=== PATIENT | female | born 1965 | race Caucasian/White ===

== ENCOUNTER 2021-02-18 11:06 | Day surgery (SDC) | payer BC ==
[2021-02-11 14:47] LABS: BASOPHILS % (AUTO) 0.4 % (0-1); EOSINOPHILS % (AUTO) 0 % (0-6); LYMPHOCYTES # (AUTO) 2.4 X10'3 (1.1-4.8); LYMPHOCYTES % (AUTO) 30.5 % (21-51); MEAN CORPUSCULAR HEMOGLOBIN 32.6 PG (27.0-31.0); MEAN CORPUSCULAR HGB CONC 34.2 g/dL (33.0-36.5); MEAN CORPUSCULAR VOLUME 95.1 FL (78-98); MONOCYTES # (AUTO) 0.7 X10'3 (0-0.9); MONOCYTES % (AUTO) 9.1 % (2-12); NEUTROPHILS # (AUTO) 4.7 X10'3 (1.8-7.7); PRE OP HEMATOCRIT 46.3 % (35.0-45.0); PRE OP HEMOGLOBIN 15.8 g/dL (12.0-16.0); PRE OP PLATELET COUNT 285 X10'3 (140-440); RED BLOOD COUNT 4.87 X10'6 (4.20-5.60); RED CELL DISTRIBUTION WIDTH 12.7 % (11.5-14.5)
[2021-02-11 15:00] LABS: PRE OP PROTIME 10.8 SECONDS (9.0-12.0)
[2021-02-11 15:02] LABS: ALBUMIN/GLOBULIN RATIO 1.2 (1.1-1.5); ALKALINE PHOSPHATASE 77 IU/L (46-116); BLOOD UREA NITROGEN 17 MG/DL (7-18); BUN/CREATININE RATIO 16.2 (6.6-38.0); CALCIUM 9.1 MG/DL (8.5-10.1); CHLORIDE 107 MMOL/L (99-107); CREATININE 1.05 MG/DL (0.40-0.90); PRE OP ALT 33 U/L (30-65); PRE OP ANION GAP 9 (8-16); PRE OP AST 18 U/L (10-37); PRE OP BILIRUB, TOTAL 0.4 MG/DL (0.0-1.0); PRE OP GLUCOSE 90 MG/DL (70-104); PRE OP POTASSIUM 4.2 MMOL/L (3.4-5.1); PRE OP SODIUM 144 MMOL/L (135-145); TOTAL CARBON DIOXIDE 28.2 MMOL/L (24-32); TOTAL PROTEIN 7.4 G/DL (6.4-8.2); eGFR 55 ML/MIN
[~2021-02-18] VITALS: Ht 170.2 cm; Wt 77.1 kg
[2021-02-18] VITALS (20 sets, daily range): BP systolic 133–200; BP diastolic 91–117
[~2021-02-18 11:06] MED LIST: HYDR12.55; LIDOcaine 1% W/epiNEPHrine 1:100,000 20ml vial ONE; LISI30TA4 PO; SILD100T70; SULF1TAB45 PO; cefTAZidime 1gm inj ONE; cocaine 4% topical solution 4ml bottle ONE; famotidine 20mg tablet PO ONE; mupirocin 2% ointment 22GM ONE; oxymetazoline 15 ML nasal spray NS ONE; ringers solution, lacted 1,000 ML IV SCH
[2021-02-18] MEDS: oxymetazoline 15 ML nasal spray NS SCH ×2 (12:00→12:07)
[2021-02-18] MEDS ORDERED: fentaNYL/PF 50MCG/1 ML 2ML syringe ONE ×2 (12:31→13:02)
[2021-02-18] MEDS ORDERED: midazolam 1 mg/ML 2ml injection ONE (12:31)
[2021-02-18] MEDS ORDERED: propofol inj 20 ML IV ONE (12:32)
[2021-02-18] MEDS ORDERED: LIDOcaine 2% (20mg/ml) 5ml vial ONE (12:32)
[2021-02-18] MEDS ORDERED: sevoflurane 250ml liquid IH ONE (12:39)
[2021-02-18] MEDS ORDERED: labetalol 5mg/ml 20ml inj. IV PRN (12:40)
[2021-02-18] MEDS ORDERED: ringers solution, lacted 1,000 ML IV SCH (12:40)
[2021-02-18] MEDS ORDERED: meperidine/PF 25mg/ml syringe IV PRN ×2 (12:40)
[2021-02-18] MEDS ORDERED: ondansetron/PF 4mg/2ml inj IV PRN (12:40)
[2021-02-18] MEDS ORDERED: morphine 2 MG/ML inj. syringe IV PRN (12:40)
[2021-02-18] MEDS ORDERED: acetaminophen 1,000mg/100ml IV 100 ML IV ONE (13:02)
[2021-02-18] MEDS ORDERED: ondansetron/PF 4mg/2ml inj ONE (13:11)
[2021-02-18] MEDS ORDERED: dexamethasone sod phosphate 4mg/ml inj. ONE (13:11)
[2021-02-18] MEDS ORDERED: meperidine/PF 25mg/ml syringe ONE (13:39)
[2021-02-18] MEDS ORDERED: hydrALAZINE 20mg/ml inj. IV ONE (14:07)
--- NOTE | 2021-02-18 14:08 | NUR ---
Received from OR via [facility], accompanied by Anesthesiologist DR ANDREA and report given by AnesthesiologistJAIME LARIOS PT IN PLACE. Addendum: 02/18/21 at 1635 by Temitope Mariee RN Amended: Links added.
[2021-02-18] MEDS ORDERED: labetalol 20mg/4ml (5mg/ml) syringe IV ONE (14:14)
[2021-02-18] MEDS: morphine 4 MG/ML inj SYRINge IV PRN ×2 (14:15→14:49)
[2021-02-18] MEDS: meperidine/PF 25mg/ml syringe IV PRN ×2 (14:29→15:53)
[2021-02-18] MEDS ORDERED: labetalol 20mg/4ml (5mg/ml) syringe IV PRN (14:30)
[2021-02-18] MEDS: hydrALAZINE 20mg/ml inj. IV PRN ×2 (15:02→15:42)
[2021-02-18] MEDS ORDERED: salt irrigation nasal spray 45 ML SPRAY NS PRN (17:15)
--- NOTE | 2021-02-18 17:38 | NUR ---
PTS BP IN ACCEPTABLE PARAMETERS, CALL INTO DR HENLEY AND UPDATED. ORDERS TO LEAVE IN [place] AND HAVE PT COME TO OFFICE AT 9:00 TOMORROW MORNING FOR REMOVAL. PT UP AND ABLE TO AMBULATE SAFELY, HAS VOIDED. D/C INSTRUCTIONS GIVEN AND GONE OVER W/PT AND PTS S/O WHO BOTH VERBALIZED UNDERSTANDING. PT D/CD TO HOME VIA W/C TO PRIVATE VEHICLE W/O INCIDENT. Addendum: 02/18/21 at 1807 by Temitope Mariee RN Amended: Links added.
== END 2021-02-18 17:38 | disposition home or self-care (01) ==
LOC: PAS 11:06 → EDSEX 12:30 → PAS 17:38
PROVIDERS: ATTEND Otolaryngology
DX: J32.8 Other chronic sinusitis (principal); J33.8 Other polyp of sinus; I10 Essential (primary) hypertension; Z20.822 Contact with and (suspected) exposure to COVID-19; Z79.01 Long term (current) use of anticoagulants; Z98.890 Other specified postprocedural states; Z87.891 Personal history of nicotine dependence; Z79.899 Other long term (current) drug therapy
CPT/HCPCS: 31253; 31259; 31267; 36415; 61782; 80053; 82948; 85025; 85576; 85610; 85730; 87426; 93005; A6402; C1726; C9250; J0131; J0360; J0713; J1100; J2001; J2175; J2250; J2270; J2405; J2704; J3010; J7040; J7120; U0003; U0005; A4618; A7000; J3490

== ENCOUNTER 2023-11-17 06:26 | Day surgery (SDC) | payer BC ==
[2023-11-12 14:41] LABS: BASOPHILS % (AUTO) 0.5 % (0-1); EOSINOPHILS # (AUTO) 0.1 X10'3 (0-0.9); EOSINOPHILS % (AUTO) 1.1 % (0-6); LYMPHOCYTES # (AUTO) 2.4 X10'3 (1.1-4.8); LYMPHOCYTES % (AUTO) 29.7 % (21-51); MEAN CORPUSCULAR HEMOGLOBIN 32.5 PG (27.0-31.0); MEAN CORPUSCULAR HGB CONC 34.3 g/dL (33.0-36.5); MEAN CORPUSCULAR VOLUME 94.9 FL (78-98); MEAN PLATELET VOLUME 7.2 FL (7.4-10.4); MONOCYTES # (AUTO) 0.6 X10'3 (0-0.9); MONOCYTES % (AUTO) 7.5 % (2-12); NEUTROPHILS # (AUTO) 4.9 X10'3 (1.8-7.7); NEUTROPHILS % (AUTO) 61.2 % (42-75); PRE OP HEMATOCRIT 46.9 % (35.0-45.0); PRE OP HEMOGLOBIN 16.1 g/dL (12.0-16.0); PRE OP PLATELET COUNT 245 X10'3 (140-440); PRE OP WHITE BLOOD COUNT 7.9 10'3 (4.8-10.8); RED BLOOD COUNT 4.94 X10'6 (4.20-5.60); RED CELL DISTRIBUTION WIDTH 13.2 % (11.5-14.5)
[2023-11-12 14:49] LABS: ALBUMIN 4.1 G/DL (3.4-5.0); ALBUMIN/GLOBULIN RATIO 1.2 (1.1-1.5); ALKALINE PHOSPHATASE 79 IU/L (46-116); BLOOD UREA NITROGEN 15 MG/DL (7-18); BUN/CREATININE RATIO 14.3 (10.0-20.0); CHLORIDE 105 MMOL/L (99-107); CREATININE 1.05 MG/DL (0.40-0.90); PRE OP ALT 33 U/L (30-65); PRE OP ANION GAP 8 (8-16); PRE OP AST 16 U/L (10-37); PRE OP BILIRUB, TOTAL 0.7 MG/DL (0.0-1.0); PRE OP GLUCOSE 107 MG/DL (70-104); PRE OP POTASSIUM 3.7 MMOL/L (3.4-5.1); PRE OP SODIUM 143 MMOL/L (135-145); TOTAL CARBON DIOXIDE 29.7 MMOL/L (24-32); TOTAL PROTEIN 7.6 G/DL (6.4-8.2); eGFR 54 ML/MIN
[2023-11-12 15:03] LABS: BILIRUBIN,URINE NEGATIVE (Neg); CLARITY,URINE CLEAR (Clear); COLOR,URINE STRAW (Yellow); GLUCOSE, URINE NEGATIVE (Neg); KETONES,URINE NEGATIVE (Neg); LEUKOCYTE ESTERASE ,URINE NEGATIVE (Neg); NITRITES, URINE NEGATIVE (Neg); OCCULT BLOOD,URINE NEGATIVE (Neg); PH,URINE 6.5 (4.8-8.0); PROTEIN,URINE NEGATIVE (Neg); UROBILINOGEN,URINE 0.2 E.U/dL (0.2-1.0)
[2023-11-12 15:13] LABS: UA COLLECTION TYPE CLN CATCH MIDSTREAM
[2023-11-17] VITALS (13 sets, daily range): BP systolic 109–136; BP diastolic 69–93; PULSE 66–93; RESP 11–20; TEMP 98.4; O2SAT 92–97
[~2023-11-17] VITALS: Ht 172.7 cm; Wt 76.0 kg
[2023-11-17] MEDS: cefazolin 2gm/D5W 100mL 100 ML IV ONE (05:30)
[~2023-11-17 06:26] MED LIST changes: +AMLO10TA PO; +FLO0.4C PO; -HYDR12.55; +HYDR12.55 PO; -LIDOcaine 1% W/epiNEPHrine 1:100,000 20ml vial ONE; -SILD100T70; -SULF1TAB45 PO; -cefTAZidime 1gm inj ONE; -cocaine 4% topical solution 4ml bottle ONE; -famotidine 20mg tablet PO ONE; -mupirocin 2% ointment 22GM ONE; -oxymetazoline 15 ML nasal spray NS ONE; -ringers solution, lacted 1,000 ML IV SCH
[2023-11-17] MEDS ORDERED: BUPIVAcaine 2.5mg/ml inj 50ml vial (contains preservative) ONE (07:07)
[2023-11-17] MEDS: famotidine 20mg tablet PO ONE (07:56)
[2023-11-17] MEDS: ringers solution, lacted 1,000 ML IV SCH (07:57)
[2023-11-17] MEDS ORDERED: ringers solution, lacted 1,000 ML IV SCH (08:25)
[2023-11-17] MEDS ORDERED: proCHLORperazine 10 MG/2 ml inj IV PRN (08:25)
[2023-11-17] MEDS ORDERED: ondansetron/PF 4mg/2ml inj IV PRN (08:25)
[2023-11-17] MEDS ORDERED: meperidine/PF 25mg/ml syringe IV PRN ×2 (08:25)
[2023-11-17] MEDS ORDERED: morphine 4 MG/ML inj SYRINge IV PRN (08:25)
[2023-11-17] MEDS ORDERED: morphine 2 MG/ML inj. syringe IV PRN (08:25)
[2023-11-17] MEDS ORDERED: labetalol 20mg/4ml (5mg/ml) syringe IV PRN (08:25)
[2023-11-17] MEDS ORDERED: enalaprilat dihydrate 2.5mg/2ml vial IV PRN (08:25)
[2023-11-17] MEDS ORDERED: fentaNYL/PF 50MCG/1 ML 2ML syringe ONE ×2 (08:59→10:25)
[2023-11-17] MEDS ORDERED: LIDOcaine 2% (20mg/ml) 5ml vial ONE ×2 (09:00→10:27)
[2023-11-17] MEDS ORDERED: midazolam 1 mg/ML 2ml injection ONE ×2 (09:00→10:25)
[2023-11-17] MEDS ORDERED: propofol inj 20 ML IV ONE ×2 (09:00→10:27)
[2023-11-17] MEDS ORDERED: meperidine/PF 25mg/ml syringe ONE (09:00)
[2023-11-17] MEDS ORDERED: dexamethasone sod phosphate 10mg/ml inj ONE (09:18)
[2023-11-17] MEDS ORDERED: sevoflurane 250ml liquid IH ONE (09:18)
[2023-11-17] MEDS ORDERED: rocuronium 10mg/ml inj IV ONE ×2 (09:32→10:27)
[2023-11-17] MEDS ORDERED: ondansetron/PF 4mg/2ml inj ONE ×2 (09:37→10:27)
[2023-11-17] MEDS: BUPIVAcaine 2.5mg/ml inj 50ml vial (contains preservative) SQ ONE (10:23)
[2023-11-17] MEDS ORDERED: hydrALAZINE 20mg/ml inj. IV ONE (12:31)
[2023-11-17] MEDS ORDERED: sugammadex 200mg/2ml injection IV ONE (12:38)
[2023-11-17] MEDS ORDERED: acetaminophen 1,000mg/100ml IV 100 ML IV ONE (12:39)
[2023-11-17] MEDS ORDERED: labetalol 20mg/4ml (5mg/ml) syringe IV ONE (12:41)
[2023-11-17] MEDS: meperidine/PF 25mg/ml syringe IV PRN (12:46)
[2023-11-17] MEDS: HYDROcodone/acetaminophen 10/325mg tab PO ONE (14:29)
== END 2023-11-17 14:32 | disposition home or self-care (01) ==
LOC: PAS 06:26 → EDSEX 06:26 → PAS 14:32
PROVIDERS: ATTEND Surgery
DX: K40.90 Unilateral inguinal hernia, without obstruction or gangrene, not specified as recurrent (principal); K42.9 Umbilical hernia without obstruction or gangrene; D17.6 Benign lipomatous neoplasm of spermatic cord; I10 Essential (primary) hypertension; Z87.891 Personal history of nicotine dependence; Z98.890 Other specified postprocedural states; Z87.442 Personal history of urinary calculi; Z79.899 Other long term (current) drug therapy; Z72.89 Other problems related to lifestyle
CPT/HCPCS: 36415; 49591; 49650; 80053; 81003; 82948; 85025; 93005; C1781; J0131; J0690; J1100; J2175; J2250; J2405; J2704; J3010; J3490; J7030; J7120; S2900; Z7506; Z7508; Z7512; A4215; A4618; C1758; J0360